=== PATIENT | male | born 1990 | race African-American/Black ===

== ENCOUNTER 2025-05-16 12:52 | Emergency (ER) | payer OTHER, BC ==
[2025-05-16 13:12] VITALS: BP 112/72; PULSE 57; RESP 18; TEMP 98.7; BMI 23.3
[2025-05-16] MEDS ORDERED: KETOROLAC TROMETHAMINE 30 MG/1 ML VIAL ONE (13:55)
[2025-05-16] MEDS: KETOROLAC TROMETHAMINE 30 MG/1 ML VIAL IM ONE (13:59)
== END 2025-05-16 14:37 | disposition home or self-care (01) ==
LOC: JERFT 12:52
PROC: 3E0233Z Introduction of Anti-inflammatory into Muscle, Percutaneous Approach (ICD-10-PCS; principal; 2025-05-16)
DX: M62.830 Muscle spasm of back (principal)
CPT/HCPCS: 99284-25